=== PATIENT | male | born 1970 | race Caucasian/White ===

== ENCOUNTER → 2020-11-27 | Outpatient (CLI) | payer BC | END | disposition home or self-care (01) | LOC: RAH 10:32 | PROVIDERS: ATTEND Nurse Practitioner Adult Health | DX: R50.9 Fever, unspecified (principal); R59.1 Generalized enlarged lymph nodes; M47.815 Spondylosis without myelopathy or radiculopathy, thoracolumbar region | CPT/HCPCS: 71046 ==